=== PATIENT | male | born 1995 | race Caucasian/White ===

== ENCOUNTER 2024-03-31 10:52 | Emergency (ER) | payer BC ==
[2024-03-31] MEDS: Ketamine 500 mg/10 ML MDV IV ONE ×2 (11:22→12:40)
[2024-03-31] MEDS: Sodium Chloride 0.9% 1,000 ML IV ONE (12:17)
[2024-03-31] MEDS: Midazolam 1 MG/ML 2 ML SDV IVPUSH ONE (12:40)
[2024-03-31] MEDS: Midazolam 1 MG/ML 2 ML SDV ONE (12:41)
[2024-03-31] MEDS: Acetaminophen/oxyCODONE 325-5 MG Tab PO ONE (12:56)
[2024-03-31] MEDS: Ketorolac 30 MG/ML SDV IVPUSH ONE (12:57)
== END 2024-03-31 13:11 | disposition home or self-care (01) ==
LOC: DL.ED 10:52
DX: S82.842A Displaced bimalleolar fracture of left lower leg, initial encounter for closed fracture (principal); S93.05XA Dislocation of left ankle joint, initial encounter; W22.8XXA Striking against or struck by other objects, initial encounter
CPT/HCPCS: 27810; 73600; 73610; 96374; 99284; A9270; J1885; J2250; J3490; J7030